=== PATIENT | male | born 1965 | race Hispanic/Latino ===

== ENCOUNTER 2017-10-26 12:33 | Inpatient (IN) | payer MEDICAID, MEDICARE ==
[2017-10-26 12:50] VITALS: BMI 19.8
--- NOTE | 2017-10-26 13:16 | C.PDOC ---
History Of Present Illness 52 yr old male presents to the ER requesting alcohol detox, last drink was last night. Patient reports he usually drink 1 pint a day. Also reports of suicidal ideation, states "want to cut my right foot off". Patient also complaints of left rib area pain for the past few days but doesn't remember any fall. Patient denies fever, chills, chest pain, SOB, nausea, vomiting, abdominal pain, weakness or numbness. Time Seen by Provider: 10/26/17 12:56 Chief Complaint (Nursing): Substance Abuse History Per: Patient History/Exam Limitations: no limitations Onset/Duration Of Symptoms: Days Current Symptoms Are (Timing): Still Present Modifying Factor(s): Alcohol Past Medical History Reviewed: Historical Data, Nursing Documentation, Vital Signs Vital Signs: Last Vital Signs Temp 98.7 F 10/26/17 14:46 Pulse 75 10/26/17 14:46 Resp 18 10/26/17 14:46 BP 121/79 10/26/17 14:46 Pulse Ox 99 10/26/17 14:46 - Medical History PMH: Anxiety, Asthma, Depression, Seizures (from ETOH withdrawal), Sleep Apnea - [facility] Procedures ALCOHOL DETOXIFICATION (03/19/15) DETOXIFICATION SERVICES FOR SUBSTANCE ABUSE TREATMENT (10/03/15) 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 Constitutional: Negative for: Fever, Chills Cardiovascular: Negative for: Chest Pain Respiratory: Negative for: Shortness of Breath Gastrointestinal: Negative for: Nausea, Vomiting, Abdominal Pain Musculoskeletal: Positive for: Other ((+) right rib area pain) Neurological: Negative for: Weakness, Numbness Psych: Positive for: Suicidal ideation, Withdrawal (alcohol) Physical Exam - Physical Exam Appears: Non-toxic, No Acute Distress, Other ((+) tremulous) Skin: Warm, Dry Head: Atraumatic, Normacephalic Eye(s): bilateral: Normal Inspection, PERRL, EOMI Oral Mucosa: Moist Lips: Normal Appearing Neck: Normal, Normal ROM, Supple Cardiovascular: Rhythm Regular, No Murmur Respiratory: Normal Breath Sounds, No Rales, No Rhonchi, No Stridor, No Wheezing Gastrointestinal/Abdominal: Normal Exam, Soft, No Tenderness, No Guarding, No Rebound Extremity: Normal ROM, No Swelling Neurological/Psych: Oriented x3, Normal Speech, Normal Motor, Normal Sensation ED Course And Treatment - Laboratory Results Result Diagrams: 10/26/17 13:29 10/26/17 13:29 ECG: Interpreted By Me, Viewed By Me ECG Rhythm: Sinus Rhythm Interpretation Of ECG: No ST/T wave abnormalities. Rate From EC (BPM) O2 Sat by Pulse Oximetry: 99 (RA) Pulse Ox Interpretation: Normal - Other Rad X-Ray - Ribs & Chest X-Ray: Viewed By Me, Read By Radiologist Interpretation: ADDENDUM: There is a subacute or old fracture at the left 10th rib with callus formation noted. Otherwise no evidence of acute displaced fracture in the left ribs. [ Addendum Report Added by Lorena Alexandra MD at 10/26/2017 17:12:12 ]. PROCEDURE: Radiographs of the Chest and Left Ribs. HISTORY: fall. COMPARISON: Comparison is made with the previous study dated 03/04/2015. TECHNIQUE: Frontal radiograph of the chest and multiple oblique radiographs of the left ribs were obtained. FINDINGS: LEFT RIBS: No fracture or focal lesion visualized. LUNGS: Clear. PLEURA: No pneumothorax or pleural fluid. CARDIOVASCULAR: Normal sized heart. No pulmonary vascular congestion. OTHER FINDINGS: None. IMPRESSION: Unremarkable radiographs of the chest and left ribs. No left rib fracture. Progress Note: Patient is admited for depression and alcohol withdrawals. Medical Decision Making Medical Decision Making: IMPRESSION: Alcohol withdrawals PLAN: * X-Ray - Ribs & Chest * EKG * Troponin * Alcohol Serum * Drug Screen * CBC * CMP * Urinalysis Disposition Discussed With : Jolly Johnson Doctor Will See Patient In The: Hospital Counseled Patient/Family Regarding: Studies Performed, Diagnosis, Need For Followup - Disposition Disposition: HOSPITALIZED Disposition Time: 14:28 Condition: FAIR - Clinical Impression Clinical Impression: Alcohol withdrawal, Depression, Suicide ideation - Scribe Statement The provider has reviewed the documentation as recorded by the Scribe Vandana Isaac Provider Attestation: All medical record entries made by the Scribe were at my direction and personally dictated by me. I have reviewed the chart and agree that the record accurately reflects my personal performance of the history, physical exam, medical decision making, and the department course for this patient. I have also personally directed, reviewed, and agree with the discharge instructions and disposition.
[2017-10-26 13:34] LABS: HEMOGLOBIN 14.4 g/dL (12.0-18.0); MEAN CELL VOLUME 90.1 fL (80.0-94.0); MEAN CORPUSCULAR HEMOGLOBIN 30.3 pg (27.0-31.0); MEAN CORPUSCULAR HGB CONC 33.6 g/dL (33.0-37.0); MEAN PLATELET VOLUME 8.1 fL (7.2-11.7); RBC 4.76 Mil/uL (4.40-5.90); RED CELL DISTRIBUTION WIDTH 13.5 % (11.5-14.5); WHITE BLOOD COUNT 17.6 K/uL (4.8-10.8)
[2017-10-26 13:40] LABS: SQUAMOUS EPITHIAL < 1 /hpf (0-5); URINE BILIRUBIN NEGATIVE (NEGATIVE); URINE BLOOD NEGATIVE (NEGATIVE); URINE CLARITY Clear (Clear); URINE COLOR Yellow (YELLOW); URINE GLUCOSE (UA) 1+ mg/dL (Normal); URINE LEUKOCYTE ESTERASE NEG Leu/uL (Negative); URINE NITRATE NEGATIVE (NEGATIVE); URINE PROTEIN NEGATIVE (NEGATIVE)
[2017-10-26 13:54] LABS: ALB/GLOB RATIO 1.4 (1.0-2.1); ALBUMIN 4.6 g/dL (3.5-5.0); ALT/SGPT 550 U/L (21-72); AST/SGOT 717 U/L (17-59); BLOOD UREA NITROGEN 21 mg/dL (9-20); CALCIUM 8.3 mg/dl (8.6-10.4); GFR AFRICAN-AMERICAN > 60; GFR NON-AFRICAN AMERICAN > 60
[2017-10-26 14:01] LABS: BARBITURATES, UR NEGATIVE (NEGATIVE); BENZODIAZEPINES, UR NEGATIVE (NEGATIVE); OPIATES, UR NEGATIVE (NEGATIVE); PHENCYCLIDINE, UR NEGATIVE (NEGATIVE)
[2017-10-26] MEDS ORDERED: Thiamine 100 mg/ml Inj IV ONE (14:08)
[2017-10-26] MEDS ORDERED: Thiamine 100 mg/ml Inj ONE (15:27)
--- NOTE | 2017-10-26 15:32 | CP.PCM.HP ---
<AlanSiena Oscar - Last Filed: 10/26/17 16:53> History of Present Illness - History of Present Illness History of Present Illness: CC: alcohol detox HPI: Patient is a 52 year old male with past medical history of alcohol abuse and anxiety who presents today because he wants to decrease his drinking. Patient used to drink socially, but about 8 years ago after his mother he started drinking heavily. He has been to about 12 detox programs and 3 inpatient rehabs. Patient has been sober for about 5 months in both 2015 and 2016 after completing programs. Patient is unsure of any triggers that lead to him to go back to drinking. He says he feels a type of safety when he drinks. He used to drink 1 fifth of alcohol per day, but for the past year has decreased to drinking about 1 pint of bourbon per day. He drinks as soon as he wakes up. He says he blacks out most days and goes to the store to buy more alcohol during blackouts. Patient says he goes to AA meetings, but feels they don't help. Patient knows he has been eating less due to the alcohol and says he has lost about 25 lbs in 3 years. He feels very poor self esteem and says it is hard for him to make decisions. He says sometimes he just stops in the middle of the street and cannot make a decision of where to go. Patient says he had one suicide attempt in 2013 where he drank one fifth of alcohol in 1 minute. Patient has not had any episodes of hurting himself and today has no SI or HI. Patient last drank alcohol last night about 1.5 pints. His last drink was around 10pm. Patient also complains of left sided rib pain. About one week ago patient was carrying heavy boxes at work and has been having pain since. Patient denies any recent falls. Patient says he is starting to feel like he is withdrawing from alcohol. He feels anxious and a little shaky. Patient denies sweats, abdominal pain, nausea, vomiting, constipation, or diarrhea. PMD: Dr. Castillo PMHx: alcohol abuse, anxiety, prediabetes Psurg: left wrist ulcer Meds: none Fam hx: Mom: lung CA, Dad: stroke at 57, Grandfather: brain tumor Social hx: alcohol: 1 pint of bourbon per day, denies tobacco, denies drugs. 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 Patient is not in contact with his family. Present on Admission - Present on Admission Any Indicators Present on Admission: No History of DVT/PE: No History of Uncontrolled Diabetes: No Urinary Catheter: No Decubitus Ulcer Present: No Review of Systems - Constitutional Constitutional: Headache - EENT Eyes: absent: Change in Vision Nose/Mouth/Throat: Sore Throat. absent: Nasal Congestion - Cardiovascular Cardiovascular: absent: Chest Pain, Diaphoresis, Dyspnea - Respiratory Additional comments: rib pain on inspiration - Gastrointestinal Gastrointestinal: absent: Abdominal Pain, Constipation, Diarrhea, Nausea, Vomiting - Genitourinary Genitourinary: absent: Difficulty Urinating - Integumentary Integumentary: absent: Rash - Psychiatric Psychiatric: Anxiety, Change in Appetite, Depression. absent: Homicidal Ideation, Suicidal Ideation Past Patient History - Past Medical History & Family History Past Medical History?: Yes - Past Social History Smoking Status: Never Smoked - CARDIAC Hx Hypertension: No - PULMONARY Hx Asthma: Yes Hx Sleep Apnea: Yes - NEUROLOGICAL Hx Seizures: Yes (from ETOH withdrawal) - HEENT Hx HEENT Problems: No Hx Blind: No Hx Cataracts: No Hx Deafness: No Hx Difficulty Chewing: No Hx Epistaxis: No Hx Glaucoma: No Hx Macular Degeneration: No - RENAL Hx Renal Failure: No - ENDOCRINE/METABOLIC Hx Diabetes Mellitus Type 1: No Hx Diabetes Mellitus Type 2: No - HEMATOLOGICAL/ONCOLOGICAL Hx Human Immunodeficiency Virus (HIV): No - INTEGUMENTARY Hx Dermatological Problems: No Hx Basil Cell: No Hx Eczema: No Hx Melanoma: No Hx Psoriasis: No Hx Squamous Cell: No - MUSCULOSKELETAL/RHEUMATOLOGICAL Hx Falls: No - GASTROINTESTINAL Hx Gastroesophageal Reflux: Yes - GENITOURINARY/GYNECOLOGICAL Hx Sexually Transmitted Disorders: No - PSYCHIATRIC Hx Anxiety: Yes Hx Depression: Yes Hx Substance Use: No - SURGICAL HISTORY Hx Cardiac Catheterization: Yes - ANESTHESIA Hx Anesthesia: No Hx Anesthesia Reactions: No Meds Allergies/Adverse Reactions: Allergies Allergy/AdvReac Type Severity Reaction Status Date / Time shellfish derived Allergy URTICARIA Verified 10/26/17 12:49 Sulfa (Sulfonamide Allergy URTICARIA Verified 10/26/17 12:49 Antibiotics) Physical Exam - Constitutional Appears: Non-toxic, No Acute Distress - Head Exam Head Exam: ATRAUMATIC, NORMAL INSPECTION, NORMOCEPHALIC - Eye Exam Eye Exam: EOMI, Normal appearance - ENT Exam ENT Exam: Mucous Membranes Moist - Respiratory Exam Respiratory Exam: Clear to Auscultation Bilateral, NORMAL BREATHING PATTERN. absent: Rales, Rhonchi, Wheezes, Respiratory Distress, Stridor - Cardiovascular Exam Cardiovascular Exam: REGULAR RHYTHM, RRR, +S1, +S2 Additional comments: left sided rib pain to palpation - GI/Abdominal Exam GI & Abdominal Exam: Normal Bowel Sounds, Soft. absent: Distended, Firm, Tenderness - Extremities Exam Extremities exam: Positive for: normal inspection. Negative for: pedal edema, tenderness - Neurological Exam Neurological exam: Alert, Oriented x3 - Psychiatric Exam Psychiatric exam: Anxious, Depressed - Skin Skin Exam: Intact, Normal Color, Warm Results - Vital Signs Recent Vital Signs: Last Vital Signs Temp 98.7 F 10/26/17 14:46 Pulse 75 10/26/17 14:46 Resp 18 10/26/17 14:46 BP 121/79 10/26/17 14:46 Pulse Ox 99 10/26/17 14:46 - Labs Result Diagrams: 10/26/17 13:29 10/26/17 13:29 Labs: Laboratory Results - last 24 hr 10/26/17 10/26/17 10/26/17 13:29 13:29 13:29 WBC 17.6 H D RBC 4.76 Hgb 14.4 Hct 42.9 MCV 90.1 MCH 30.3 MCHC 33.6 RDW 13.5 Plt Count 269 MPV 8.1 Sodium 139 Potassium 3.9 Chloride 101 Carbon Dioxide 27 Anion Gap 15 BUN 21 H Creatinine 0.7 L Est GFR ( Amer) > 60 Est GFR (Non-Af Amer) > 60 Random Glucose 80 Calcium 8.3 L Total Bilirubin 0.8 AST 717 H ALT 550 H D Alkaline Phosphatase 90 Troponin I < 0.0120 Total Protein 8.0 Albumin 4.6 Globulin 3.3 Albumin/Globulin Ratio 1.4 Urine Color Yellow Urine Clarity Clear Urine pH 5.0 Ur Specific [place] 1.027 Urine Protein Negative Urine Glucose (UA) 1+ H Urine Ketones Trace Urine Blood Negative Urine Nitrate Negative Urine Bilirubin Negative Urine Urobilinogen 2.0 Ur Leukocyte Esterase Neg Urine WBC (Auto) 1 Urine RBC (Auto) 1 Ur Squamous Epith Cells < 1 Urine Opiates Screen Urine Methadone Screen Ur Barbiturates Screen Ur Phencyclidine Scrn Ur Amphetamines Screen U Benzodiazepines Scrn U Oth Cocaine Metabols U Cannabinoids Screen Alcohol, Quantitative 46 H 10/26/17 13:29 WBC RBC Hgb Hct MCV MCH MCHC RDW Plt Count MPV Sodium Potassium Chloride Carbon Dioxide Anion Gap BUN Creatinine Est GFR ( Amer) Est GFR (Non-Af Amer) Random Glucose Calcium Total Bilirubin AST ALT Alkaline Phosphatase Troponin I Total Protein Albumin Globulin Albumin/Globulin Ratio Urine Color Urine Clarity Urine pH Ur Specific [place] Urine Protein Urine Glucose (UA) Urine Ketones Urine Blood Urine Nitrate Urine Bilirubin Urine Urobilinogen Ur Leukocyte Esterase Urine WBC (Auto) Urine RBC (Auto) Ur Squamous Epith Cells Urine Opiates Screen Negative Urine Methadone Screen Negative Ur Barbiturates Screen Negative Ur Phencyclidine Scrn Negative Ur Amphetamines Screen Negative U Benzodiazepines Scrn Negative U Oth Cocaine Metabols Negative U Cannabinoids Screen Negative Alcohol, Quantitative Assessment & Plan - Assessment and Plan (Free Text) Assessment: Alcohol Withdrawal Librium 25mg po given in ED Ativan taper Banana bag Ativan 1mg q4h IVP PRN Multivitamins po daily Thiamine 100mg po daily Folic acid 1 mg po daily seizure precautions [facility] psych consult, Dr. Mejía, help appreciated Depression 1:1 observation for possible SI Transaminitis AST: 717 ALT: 550 continue to monitor Left Rib Fracture follow up official report of rib with chest xray as per ED physician- 10th rib fracture Motrin 400mg q6h prn pain Prophylactic Measures Protonix 40mg po daily SCDs, f/u INR before chemical anticoagulation <Jolly Johnson - Last Filed: 10/26/17 19:18> Results - Vital Signs Recent Vital Signs: Last Vital Signs Temp 98.7 F 10/26/17 14:46 Pulse 75 10/26/17 14:46 Resp 18 10/26/17 14:46 BP 121/79 10/26/17 14:46 Pulse Ox 99 10/26/17 17:45 - Labs Result Diagrams: 10/26/17 13:29 10/26/17 13:29 Labs: Laboratory Results - last 24 hr 10/26/17 10/26/17 10/26/17 13:29 13:29 13:29 WBC 17.6 H D RBC 4.76 Hgb 14.4 Hct 42.9 MCV 90.1 MCH 30.3 MCHC 33.6 RDW 13.5 Plt Count 269 MPV 8.1 PT INR Sodium 139 Potassium 3.9 Chloride 101 Carbon Dioxide 27 Anion Gap 15 BUN 21 H Creatinine 0.7 L Est GFR ( Amer) > 60 Est GFR (Non-Af Amer) > 60 Random Glucose 80 Calcium 8.3 L Total Bilirubin 0.8 AST 717 H ALT 550 H D Alkaline Phosphatase 90 Troponin I < 0.0120 Total Protein 8.0 Albumin 4.6 Globulin 3.3 Albumin/Globulin Ratio 1.4 Urine Color Yellow Urine Clarity Clear Urine pH 5.0 Ur Specific [place] 1.027 Urine Protein Negative Urine Glucose (UA) 1+ H Urine Ketones Trace Urine Blood Negative Urine Nitrate Negative Urine Bilirubin Negative Urine Urobilinogen 2.0 Ur Leukocyte Esterase Neg Urine WBC (Auto) 1 Urine RBC (Auto) 1 Ur Squamous Epith Cells < 1 Urine Opiates Screen Urine Methadone Screen Ur Barbiturates Screen Ur Phencyclidine Scrn Ur Amphetamines Screen U Benzodiazepines Scrn U Oth Cocaine Metabols U Cannabinoids Screen Alcohol, Quantitative 46 H 10/26/17 10/26/17 13:29 17:30 WBC RBC Hgb Hct MCV MCH MCHC RDW Plt Count MPV PT 11.3 INR 1.0 Sodium Potassium Chloride Carbon Dioxide Anion Gap BUN Creatinine Est GFR ( Amer) Est GFR (Non-Af Amer) Random Glucose Calcium Total Bilirubin AST ALT Alkaline Phosphatase Troponin I Total Protein Albumin Globulin Albumin/Globulin Ratio Urine Color Urine Clarity Urine pH Ur Specific [place] Urine Protein Urine Glucose (UA) Urine Ketones Urine Blood Urine Nitrate Urine Bilirubin Urine Urobilinogen Ur Leukocyte Esterase Urine WBC (Auto) Urine RBC (Auto) Ur Squamous Epith Cells Urine Opiates Screen Negative Urine Methadone Screen Negative Ur Barbiturates Screen Negative Ur Phencyclidine Scrn Negative Ur Amphetamines Screen Negative U Benzodiazepines Scrn Negative U Oth Cocaine Metabols Negative U Cannabinoids Screen Negative Alcohol, Quantitative Attending/Attestation - Attestation I have personally seen and examined this patient.: Yes I have fully participated in the care of the patient.: Yes I have reviewed all pertinent clinical information: Yes Notes (Text): patient was seen and examined Discussed with the resident I agree with the documentation of the assessment and the plan
--- NOTE | 2017-10-26 17:09 | RAD ---
PROCEDURE: Radiographs of the Chest and Left Ribs. HISTORY: fall COMPARISON: Comparison is made with the previous study dated 03/04/2015. TECHNIQUE: Frontal radiograph of the chest and multiple oblique radiographs of the left ribs were obtained. FINDINGS: LEFT RIBS: No fracture or focal lesion visualized. LUNGS: Clear. PLEURA: No pneumothorax or pleural fluid. CARDIOVASCULAR: Normal sized heart. No pulmonary vascular congestion. OTHER FINDINGS: None. IMPRESSION: Unremarkable radiographs of the chest and left ribs. No left rib fracture.
[2017-10-26 17:40] LABS: PROTHROMBIN TIME 11.3 SECONDS (9.7-12.2)
[2017-10-26] MEDS ORDERED: Folic Acid 1 MG, Thiamine 100 MG, Multivitamin (MVI) 10 ML in Dextrose 5% In Water 1,00... IV SCH (18:00)
[2017-10-27 04:31] LABS: BASO # 0.1 K/uL (0.0-0.2); BASO % 0.8 % (0.0-2.0); EOS # 0.2 K/uL (0.0-0.7); HEMOGLOBIN 12.7 g/dL (12.0-18.0); LYMPH % 21.7 % (20.0-40.0); MEAN CELL VOLUME 89.2 fL (80.0-94.0); MEAN CORPUSCULAR HEMOGLOBIN 31.1 pg (27.0-31.0); MEAN CORPUSCULAR HGB CONC 34.8 g/dL (33.0-37.0); MEAN PLATELET VOLUME 7.9 fL (7.2-11.7); MONO # 0.6 K/uL (0.0-0.8); MONO % 6.4 % (0.0-10.0); NEUT # 6.3 K/uL (1.8-7.0); NEUT % 69.1 % (50.0-75.0); NRBC % 0.1 % (0.0-2.0); RBC 4.1 Mil/uL (4.40-5.90); RED CELL DISTRIBUTION WIDTH 13.7 % (11.5-14.5); WHITE BLOOD COUNT 9.2 K/uL (4.8-10.8)
[2017-10-27 04:55] LABS: ALB/GLOB RATIO 1.4 (1.0-2.1); ALBUMIN 3.6 g/dL (3.5-5.0); ALT/SGPT 315 U/L (21-72); AST/SGOT 218 U/L (17-59); BLOOD UREA NITROGEN 20 mg/dL (9-20); CALCIUM 7.9 mg/dl (8.6-10.4); GFR AFRICAN-AMERICAN > 60; GFR NON-AFRICAN AMERICAN > 60; MAGNESIUM 1.8 mg/dL (1.6-2.3)
[2017-10-27] MEDS: Pantoprazole 40 mg EC Tab PO SCH (11:25)
[2017-10-27] MEDS: Multiple Vitamins Tab PO SCH (11:25)
--- NOTE | 2017-10-27 15:51 | CP.PCM.PN ---
Subjective - Date & Time of Evaluation Date of Evaluation: 10/27/17 Time of Evaluation: 07:00 - Subjective Subjective: PGY1- Medicine Note-Dr. Haider's Service Patient seen and examined at bedside and in no acute distress. Patient says he feels better and less anxious and depressed than yesterday. Patient still feels some shakiness. Patient feels slightly diaphoretic. Patient denies shortness of breath, chest pain, abdominal pain, nausea, vomiting, constipation, or diarrhea. Objective - Vital Signs/Intake and Output Vital Signs (last 24 hours): Temp Pulse Resp BP Pulse Ox 98.5 F 71 18 109/62 97 10/27/17 14:22 10/27/17 14:22 10/27/17 14:22 10/27/17 14:22 10/27/17 14:22 - Medications Medications: Current Medications Folic Acid (Folic Acid) 1 mg PO DAILY [facility] Last Admin: 10/27/17 11:25 Dose: 1 mg Heparin Sodium (Porcine) (Heparin) 5,000 units SC Q8 [facility] Last Admin: 10/27/17 13:29 Dose: 5,000 units Ibuprofen (Motrin Tab) 400 mg PO Q6H PRN PRN Reason: Pain, moderate (4-7) Lorazepam (Ativan) 1 mg IVP Q4H PRN PRN Reason: Anxiety Lorazepam (Ativan) 2 mg PO Q4 [facility] PRN Reason: Taper Stop: 10/31/17 17:14 Last Admin: 10/27/17 12:06 Dose: 2 mg Multivitamins (Hexavitamin) 1 tab PO DAILY [facility] Last Admin: 10/27/17 11:25 Dose: 1 tab Pantoprazole Sodium (Protonix Ec Tab) 40 mg PO DAILY [facility] Last Admin: 10/27/17 11:25 Dose: 40 mg Thiamine HCl (Vitamin B1 Tab) 100 mg PO DAILY [facility] Last Admin: 10/27/17 11:25 Dose: 100 mg - Labs Labs: 10/27/17 04:28 10/27/17 04:28 PT 11.3 SECONDS (9.7-12.2) 10/26/17 17:30 INR 1.0 10/26/17 17:30 - Additional Findings Additional findings: - Constitutional Appears: Non-toxic, No Acute Distress - Head Exam Head Exam: ATRAUMATIC, NORMAL INSPECTION, NORMOCEPHALIC - Eye Exam Eye Exam: EOMI, Normal appearance - ENT Exam ENT Exam: Mucous Membranes Moist - Respiratory Exam Respiratory Exam: Clear to Auscultation Bilateral, NORMAL BREATHING PATTERN. absent: Rales, Rhonchi, Wheezes, Respiratory Distress, Stridor - Cardiovascular Exam Cardiovascular Exam: REGULAR RHYTHM, RRR, +S1, +S2 Additional comments: left sided rib pain to palpation - GI/Abdominal Exam GI & Abdominal Exam: Normal Bowel Sounds, Soft. absent: Distended, Firm, Tenderness - Extremities Exam Extremities exam: Positive for: normal inspection. Negative for: pedal edema, tenderness - Neurological Exam Neurological exam: Alert, Oriented x3 - Psychiatric Exam Psychiatric exam: Normal Affect, Normal Mood - Skin Skin Exam: Intact, Normal Color, Warm Assessment and Plan - Assessment and Plan (Free Text) Assessment: Alcohol Withdrawal Librium 25mg po given in ED Ativan taper Banana bag Ativan 1mg q4h IVP PRN Multivitamins po daily Thiamine 100mg po daily Folic acid 1 mg po daily seizure precautions [place] psych consult, Dr. Mejía, help appreciated Depression 1:1 observation for possible SI Transaminitis decreasing AST: 218, ALT: 315 on 10/27 AST: 717 ALT: 550 on 10/26 continue to monitor Subacute/ Old Left Rib Fracture ribs and cxray(10/26/17): subacute or old fracture at left 10th rib with callus formation as per ED physician- 10th rib fracture Motrin 400mg q6h prn pain Prophylactic Measures Protonix 40mg po daily SCDs, Heparin 5000 u sc q8h
[2017-10-27 17:00] VITALS: RESP 20
--- NOTE | 2017-10-27 23:57 | CARD ---
APPROVED REPORT EKG Measurement Heart [id number] <Conclusion> Normal sinus rhythm Normal ECG
[2017-10-28] MEDS ORDERED: Pneumococcal 23-Valent Vaccine IM ONE (00:31)
[2017-10-28] MEDS ORDERED: Influenza Vaccine 60 mcg/0.5 mL SYR (4YR UP) IM ONE (00:39)
[2017-10-28 08:51] LABS: BASO # 0.1 K/uL (0.0-0.2); BASO % 2.6 % (0.0-2.0); EOS # 0.5 K/uL (0.0-0.7); EOS % 10.5 % (0.0-4.0); LYMPH # 1.5 K/uL (1.0-4.3); MEAN CELL VOLUME 89.8 fL (80.0-94.0); MEAN CORPUSCULAR HEMOGLOBIN 30.5 pg (27.0-31.0); MEAN PLATELET VOLUME 8.6 fL (7.2-11.7); MONO # 0.6 K/uL (0.0-0.8); MONO % 11.6 % (0.0-10.0); NEUT # 2.1 K/uL (1.8-7.0); NEUT % 43.3 % (50.0-75.0); NRBC % 0.1 % (0.0-2.0); RBC 4.26 Mil/uL (4.40-5.90); WHITE BLOOD COUNT 4.8 K/uL (4.8-10.8)
[2017-10-28] MEDS: Pantoprazole 40 mg EC Tab PO SCH (09:12)
[2017-10-28] MEDS: Multiple Vitamins Tab PO SCH (09:12)
[2017-10-28 09:34] LABS: ALB/GLOB RATIO 1.3 (1.0-2.1); ALBUMIN 3.7 g/dL (3.5-5.0); ALT/SGPT 197 U/L (21-72); AST/SGOT 83 U/L (17-59); BLOOD UREA NITROGEN 15 mg/dL (9-20); CALCIUM 8.3 mg/dl (8.6-10.4); GFR AFRICAN-AMERICAN > 60; GFR NON-AFRICAN AMERICAN > 60; MAGNESIUM 1.6 mg/dL (1.6-2.3)
--- NOTE | 2017-10-28 11:28 | PCM.PSYCH ---
Initial Psychiatric Evaluation - Initial Psychiatric Evaluation Type of Admission: Voluntary History of Present Illness and Precipitating Events: Consultation ordered by Medicine team for alcohol use and withdrawal. Patient is a 52 year old male with a past medical history of generalized anxiety , who presented to the hospital for alcohol detox. This patient is single, has no children, employed but not currently working due to weather, and lives at a residence safe house in [place]. Patient drinks "1 pint of bourbon daily" for 12 years. His last use was Friday (1 pint of bourbon), the day before coming to the hospital. Patient reports he has a hard time deciding whether to drink or not, sometimes "stops in the middle of the street and cant decide". Patient states he would really like to stop drinking, but has a hard time making the decision. Patient says he sneaks his alcohol into his residence because there are several people who are recovering addicts. Patient has no family support, but has good support from others. He attends AA meetings, but says it does not help his addiction. Patient denies using drugs or other substances and does not use tobacco. Patient has been to detox/rehab "multiple times, over 10 times", and has had two periods of sobriety in 2014 and 2016 for a duration of 5 months. Patient states he thinks he needs a long-term rehab to remain sober. Patient denies a family history of psychiatric disorders, but admits to a family history of alcohol abuse. Patient currently feels slightly better, less shaky, less sweats, and a slight headache; otherwise, denies nausea , vomiting, diarrhea, auditory and visual hallucinations. Current Medications: Active Medications Generic Name Dose Route Start Last Admin Trade Name Freq PRN Reason Stop Dose Admin Folic Acid 1 mg 10/27/17 10:00 10/28/17 09:12 Folic Acid PO 1 mg DAILY JACQUELINE Administration Heparin Sodium (Porcine) 5,000 units 10/27/17 06:00 10/28/17 06:04 Heparin SC 5,000 units Q8 JACQUELINE Administration Ibuprofen 400 mg 10/26/17 17:07 Motrin Tab PO Q6H PRN Pain, moderate (4-7) Lorazepam 1 mg 10/26/17 17:02 Ativan IVP Q4H PRN Anxiety Lorazepam 2 mg 10/26/17 17:15 10/28/17 09:00 Ativan PO 10/31/17 17:14 2 mg Q4 JACQUELINE Administration Taper Multivitamins 1 tab 10/27/17 10:00 10/28/17 09:12 Hexavitamin PO 1 tab DAILY JACQUELINE Administration Pantoprazole Sodium 40 mg 10/27/17 10:00 10/28/17 09:12 Protonix Ec Tab PO 40 mg DAILY JACQUELINE Administration Thiamine HCl 100 mg 10/27/17 10:00 10/28/17 09:12 Vitamin B1 Tab PO 100 mg DAILY JACQUELINE Administration Past Psychiatric History - Past Psychiatric History Pertinent Medical Hx (Current Medical&Sleep Prob, Allergies): Allergies Allergy/AdvReac Type Severity Reaction Status Date / Time shellfish derived Allergy URTICARIA Verified 10/26/17 12:49 Sulfa (Sulfonamide Allergy URTICARIA Verified 10/26/17 12:49 Antibiotics) No Known Home Med 10/26/17 Review of Systems - Constitutional Constitutional: Sweats - Neurological Neurological: Headaches, Tremor (improving) - Psychiatric Psychiatric: Depression, Suicidal Ideation ("thoughts of hurting self, but no plan or attempts in past"). absent: Anxiety, Auditory Hallucinations, Hallucinations, Homicidal Ideation, Hopelessness, Visual Hallucinations, Tactile Hallucinations Mental Status Examination - Personal Presentation Personal Presentation: Looks stated age - Affect Affect: Depressed - Motor Activity Motor Activity: Calm - Reliability in Providing Information Reliability in Providing Information: Fair - Speech Speech: Organized - Mood Mood: Depressed - Formal Thought Process Formal Thought Process: No Impairment - Cognitive Functions Orientation: Person, Place, Situation, Time Sensorium: Alert Attention/Concentration: Attentive Estimate of Intelligence: Average Judgement: Intact, as evidence by: Insight regarding need for hospitalization Memory: Recent intact, as evidence by: Ability to recall events of the day - Risk Risk: Suicidal, Withdrawal, Diminished functioning DSM 5 DX - DSM 5 DSM 5 Diagnosis: Alcohol Use Disorder Alcohol Withdrawal - Recommended/Plan of Treatment Treatment Recommendations and Plan of Treatment: Continue Ativan 1mg IV Q4 PRN, Ativan 2mg PO Q4, Folic Acid, Multivitamins, Thiamine As needed medications Supportive therapy, [place] for abstinence, CBT for relapse prevention Refer to rehab or IOP, and self-help groups 34 min - Smoking Cessation Smoking Cessation Initiated: No
[2017-10-28 16:16] VITALS: O2SAT 96
--- NOTE | 2017-10-28 17:35 | CP.PCM.PN ---
Subjective - Date & Time of Evaluation Date of Evaluation: 10/28/17 Time of Evaluation: 07:00 - Subjective Subjective: PGY1- Medicine Note-Dr. Haider's Service Patient seen and examined at bedside and in no acute distress. Patient says he feels better and less anxious and depressed than yesterday. Patient still feels some shakiness and anxiety. Patient denies shortness of breath, chest pain, abdominal pain, nausea, vomiting, constipation, or diarrhea. Objective - Vital Signs/Intake and Output Vital Signs (last 24 hours): Temp Pulse Resp BP Pulse Ox 98.2 F 64 20 100/59 L 96 10/28/17 16:00 10/28/17 16:00 10/28/17 16:00 10/28/17 16:00 10/28/17 16:00 Intake and Output: 10/28/17 10/28/17 06:59 18:59 Intake Total 720 Balance 720 - Medications Medications: Current Medications Folic Acid (Folic Acid) 1 mg PO DAILY [facility] Last Admin: 10/28/17 09:12 Dose: 1 mg Heparin Sodium (Porcine) (Heparin) 5,000 units SC Q8 [facility] Last Admin: 10/28/17 14:39 Dose: 5,000 units Ibuprofen (Motrin Tab) 400 mg PO Q6H PRN PRN Reason: Pain, moderate (4-7) Lorazepam (Ativan) 1 mg IVP Q4H PRN PRN Reason: Anxiety Lorazepam (Ativan) 1 mg PO Q4 [facility] PRN Reason: Taper Stop: 10/31/17 17:14 Last Admin: 10/28/17 16:36 Dose: 2 mg Multivitamins (Hexavitamin) 1 tab PO DAILY [facility] Last Admin: 10/28/17 09:12 Dose: 1 tab Pantoprazole Sodium (Protonix Ec Tab) 40 mg PO DAILY [facility] Last Admin: 10/28/17 09:12 Dose: 40 mg Thiamine HCl (Vitamin B1 Tab) 100 mg PO DAILY [facility] Last Admin: 10/28/17 09:12 Dose: 100 mg - Labs Labs: 10/28/17 08:42 10/28/17 08:42 PT 11.3 SECONDS (9.7-12.2) 10/26/17 17:30 INR 1.0 10/26/17 17:30 APTT 36 SECONDS (21-34) H 10/28/17 08:42 - Additional Findings Additional findings: - Additional Findings Additional findings: - Constitutional Appears: Non-toxic, No Acute Distress - Head Exam Head Exam: ATRAUMATIC, NORMAL INSPECTION, NORMOCEPHALIC - Eye Exam Eye Exam: EOMI, Normal appearance - ENT Exam ENT Exam: Mucous Membranes Moist - Respiratory Exam Respiratory Exam: Clear to Auscultation Bilateral, NORMAL BREATHING PATTERN. absent: Rales, Rhonchi, Wheezes, Respiratory Distress, Stridor - Cardiovascular Exam Cardiovascular Exam: REGULAR RHYTHM, RRR, +S1, +S2 Additional comments: left sided rib pain to palpation - GI/Abdominal Exam GI & Abdominal Exam: Normal Bowel Sounds, Soft. absent: Distended, Firm, Tenderness - Extremities Exam Extremities exam: Positive for: normal inspection. Negative for: pedal edema, tenderness - Neurological Exam Neurological exam: Alert, Oriented x3 - Psychiatric Exam Psychiatric exam: Normal Affect, Normal Mood - Skin Skin Exam: Intact, Normal Color, Warm Assessment and Plan - Assessment and Plan (Free Text) Assessment: Alcohol Withdrawal Librium 25mg po given in ED Ativan taper Banana bag Ativan 1mg q4h IVP PRN Multivitamins po daily Thiamine 100mg po daily Folic acid 1 mg po daily seizure precautions [place] psych consult, Dr. Mejía, help appreciated Depression 1:1 observation for possible SI Transaminitis decreasing AST: 218, ALT: 315 on 10/27 AST: 717 ALT: 550 on 10/26 continue to monitor Subacute/ Old Left Rib Fracture ribs and cxray(10/26/17): subacute or old fracture at left 10th rib with callus formation as per ED physician- 10th rib fracture Motrin 400mg q6h prn pain Prophylactic Measures Protonix 40mg po daily SCDs, Heparin 5000 u sc q8h
[2017-10-29 01:40] VITALS: BP 96/59; PULSE 68; TEMP 97.5
[2017-10-29] MEDS: Pantoprazole 40 mg EC Tab PO SCH (11:06)
[2017-10-29] MEDS: Multiple Vitamins Tab PO SCH (11:06)
[2017-10-29 11:30] LABS: BASO # 0.1 K/uL (0.0-0.2); BASO % 1.3 % (0.0-2.0); EOS # 0.4 K/uL (0.0-0.7); EOS % 6.8 % (0.0-4.0); HEMOGLOBIN 13.4 g/dL (12.0-18.0); LYMPH # 1.4 K/uL (1.0-4.3); LYMPH % 25.8 % (20.0-40.0); MEAN CELL VOLUME 90.3 fL (80.0-94.0); MEAN CORPUSCULAR HEMOGLOBIN 30.6 pg (27.0-31.0); MEAN CORPUSCULAR HGB CONC 33.9 g/dL (33.0-37.0); MEAN PLATELET VOLUME 8.7 fL (7.2-11.7); MONO # 0.5 K/uL (0.0-0.8); MONO % 9.1 % (0.0-10.0); NRBC % 0.1 % (0.0-2.0); RBC 4.38 Mil/uL (4.40-5.90); RED CELL DISTRIBUTION WIDTH 13.9 % (11.5-14.5); WHITE BLOOD COUNT 5.3 K/uL (4.8-10.8)
[2017-10-29 11:53] LABS: ALB/GLOB RATIO 1.3 (1.0-2.1); ALBUMIN 3.7 g/dL (3.5-5.0); ALT/SGPT 143 U/L (21-72); AST/SGOT 47 U/L (17-59); BLOOD UREA NITROGEN 17 mg/dL (9-20); CALCIUM 8.6 mg/dl (8.6-10.4); GFR AFRICAN-AMERICAN > 60; GFR NON-AFRICAN AMERICAN > 60; MAGNESIUM 1.4 mg/dL (1.6-2.3)
--- NOTE | 2017-10-29 12:46 | PCM.PYCHPN ---
Psychiatric Progress Note - Psychiatric Progress Note Patient seen today, length of contact: 15 min Medication Change: No Medical Record Reviewed: Yes Mental Status Examination - Cognitive Function Orientation: Person, Place, Situation, Time Memory: Intact Attention: WNL Concentration: WNL - Mood Mood: Depressed - Affect Affect: Depressed - Formal Thought Process Formal Thought Process: No Impairment
--- NOTE | 2017-10-29 15:09 | CP.PCM.DIS ---
Provider - Provider Date of Admission: 10/26/17 14:27 Attending physician: Jolly Johnson MD Primary care physician: Dr. Castillo Consults: Psych: Dr. Yeager Time Spent in preparation of Discharge (in minutes): 45 Diagnosis - Discharge Diagnosis (1) Alcohol withdrawal Status: Resolved (2) Depression Status: Chronic (3) Alcohol dependence Status: Chronic Hospital Course - Lab Results Lab Results: Most Recent Lab Values WBC 5.3 K/uL (4.8-10.8) 10/29/17 11:23 RBC 4.38 Mil/uL (4.40-5.90) L 10/29/17 11:23 Hgb 13.4 g/dL (12.0-18.0) 10/29/17 11:23 Hct 39.5 % (35.0-51.0) 10/29/17 11:23 MCV 90.3 fL (80.0-94.0) 10/29/17 11:23 MCH 30.6 pg (27.0-31.0) 10/29/17 11:23 MCHC 33.9 g/dL (33.0-37.0) 10/29/17 11:23 RDW 13.9 % (11.5-14.5) 10/29/17 11:23 Plt Count 220 K/uL (130-400) 10/29/17 11:23 MPV 8.7 fL (7.2-11.7) 10/29/17 11:23 Neut % (Auto) 57.0 % (50.0-75.0) 10/29/17 11:23 Lymph % (Auto) 25.8 % (20.0-40.0) 10/29/17 11:23 [place] % (Auto) 9.1 % (0.0-10.0) 10/29/17 11:23 Eos % (Auto) 6.8 % (0.0-4.0) H 10/29/17 11:23 Baso % (Auto) 1.3 % (0.0-2.0) 10/29/17 11:23 Neut # 3.0 K/uL (1.8-7.0) 10/29/17 11:23 Lymph # 1.4 K/uL (1.0-4.3) 10/29/17 11:23 [place] # 0.5 K/uL (0.0-0.8) 10/29/17 11:23 Eos # 0.4 K/uL (0.0-0.7) 10/29/17 11:23 Baso # 0.1 K/uL (0.0-0.2) 10/29/17 11:23 PT 11.3 SECONDS (9.7-12.2) 10/26/17 17:30 INR 1.0 10/26/17 17:30 APTT 36 SECONDS (21-34) H 10/28/17 08:42 Sodium 133 mmol/L (132-148) 10/29/17 11:23 Potassium 4.4 mmol/L (3.6-5.2) 10/29/17 11:23 Chloride 97 mmol/L (98-107) L 10/29/17 11:23 Carbon Dioxide 30 mmol/L (22-30) 10/29/17 11:23 Anion Gap 10 (10-20) 10/29/17 11:23 BUN 17 mg/dL (9-20) 10/29/17 11:23 Creatinine 0.7 mg/dL (0.8-1.5) L 10/29/17 11:23 Est GFR ( Amer) > 60 10/29/17 11:23 Est GFR (Non-Af Amer) > 60 10/29/17 11:23 Random Glucose 119 mg/dL (75-110) H 10/29/17 11:23 Calcium 8.6 mg/dl (8.6-10.4) 10/29/17 11:23 Phosphorus 2.2 mg/dL (2.5-4.5) L 10/29/17 11:23 Magnesium 1.4 mg/dL (1.6-2.3) L 10/29/17 11:23 Total Bilirubin 0.5 mg/dL (0.2-1.3) 10/29/17 11:23 AST 47 U/L (17-59) 10/29/17 11:23 ALT 143 U/L (21-72) H D 10/29/17 11:23 Alkaline Phosphatase 68 U/L (38-126) 10/29/17 11:23 Troponin I < 0.0120 ng/mL (0.00-0.120) 10/26/17 13:29 Total Protein 6.7 g/dL (6.3-8.3) 10/29/17 11:23 Albumin 3.7 g/dL (3.5-5.0) 10/29/17 11:23 Globulin 3.0 gm/dL (2.2-3.9) 10/29/17 11:23 Albumin/Globulin Ratio 1.3 (1.0-2.1) 10/29/17 11:23 Urine Color Yellow (YELLOW) 10/26/17 13:29 Urine Clarity Clear (Clear) 10/26/17 13:29 Urine pH 5.0 (5.0-8.0) 10/26/17 13:29 Ur Specific [place] 1.027 (1.003-1.030) 10/26/17 13:29 Urine Protein Negative mg/dL (NEGATIVE) 10/26/17 13:29 Urine Glucose (UA) 1+ mg/dL (Normal) H 10/26/17 13:29 Urine Ketones Trace mg/dL (NEGATIVE) 10/26/17 13:29 Urine Blood Negative (NEGATIVE) 10/26/17 13:29 Urine Nitrate Negative (NEGATIVE) 10/26/17 13:29 Urine Bilirubin Negative (NEGATIVE) 10/26/17 13:29 Urine Urobilinogen 2.0 mg/dL (0.2-1.0) 10/26/17 13:29 Ur Leukocyte Esterase Neg Lai/uL (Negative) 10/26/17 13:29 Urine WBC (Auto) 1 /hpf (0-5) 10/26/17 13:29 Urine RBC (Auto) 1 /hpf (0-3) 10/26/17 13:29 Ur Squamous Epith Cells < 1 /hpf (0-5) 10/26/17 13:29 Urine Opiates Screen Negative (NEGATIVE) 10/26/17 13:29 Urine Methadone Screen Negative (NEGATIVE) 10/26/17 13:29 Ur Barbiturates Screen Negative (NEGATIVE) 10/26/17 13:29 Ur Phencyclidine Scrn Negative (NEGATIVE) 10/26/17 13:29 Ur Amphetamines Screen Negative (NEGATIVE) 10/26/17 13:29 U Benzodiazepines Scrn Negative (NEGATIVE) 10/26/17 13:29 U Oth Cocaine Metabols Negative (NEGATIVE) 10/26/17 13:29 U Cannabinoids Screen Negative (NEGATIVE) 10/26/17 13:29 Alcohol, Quantitative 46 mg/dl (0-10) H 10/26/17 13:29 - Hospital Course Hospital Course: "CC: alcohol detox HPI: Patient is a 52 year old male with past medical history of alcohol abuse and anxiety who presents today because he wants to decrease his drinking. Patient used to drink socially, but about 8 years ago after his mother he started drinking heavily. He has been to about 12 detox programs and 3 inpatient rehabs. Patient has been sober for about 5 months in both 2015 and 2016 after completing programs. Patient is unsure of any triggers that lead to him to go back to drinking. He says he feels a type of safety when he drinks. He used to drink 1 fifth of alcohol per day, but for the past year has decreased to drinking about 1 pint of bourbon per day. He drinks as soon as he wakes up. He says he blacks out most days and goes to the store to buy more alcohol during blackouts. Patient says he goes to AA meetings, but feels they don't help. Patient knows he has been eating less due to the alcohol and says he has lost about 25 lbs in 3 years. He feels very poor self esteem and says it is hard for him to make decisions. He says sometimes he just stops in the middle of the street and cannot make a decision of where to go. Patient says he had one suicide attempt in 2013 where he drank one fifth of alcohol in 1 minute. Patient has not had any episodes of hurting himself and today has no SI or HI. Patient last drank alcohol last night about 1.5 pints. His last drink was around 10pm. Patient also complains of left sided rib pain. About one week ago patient was carrying heavy boxes at work and has been having pain since. Patient denies any recent falls. Patient says he is starting to feel like he is withdrawing from alcohol. He feels anxious and a little shaky. Patient denies sweats, abdominal pain, nausea, vomiting, constipation, or diarrhea." Hospital Course: Patient admitted for alcohol withdrawal. Patient was placed on an Ativan taper with Ativan 1mg q4h IVP PRN. Patient was given one Banana bag and then placed on Thiamine 100mg po daily, Folic acid 1 mg po daily, and multivitamins. Patient was placed on seizure precautions with CIKY protocol. Psychiatry, Dr. Yeager was consulted. Patient has a history of depression and was placed on 1:1 observation for possible SI. Patient evaluated by psychiatry and no longer having any thoughts of hurting himself. Patient stable for discharge. Patient encouraged to seek outpatient help/ treatment for alcohol abuse and depression. Patient admitted with transaminitis. On admission AST: 717 ALT: 550 and upon discharge AST: 47, ALT: 143. Subacute/ Old Left Rib Fracture found on admission. Ribs and cxray(10/26/17) showed subacute or old fracture at left 10th rib with callus formation. Patient to take OTC pain medication. While in the hospital patient was treated for prophylaxis with Protonix 40mg po daily, SCDs, and Heparin 5000 u sc q8h. This is a summary of the patient's hospital course, please see chart for full details. Patient stable for discharge as per Dr. Haider and Dr. Yeager. Discharge Exam - Head Exam Head Exam: ATRAUMATIC, NORMAL INSPECTION, NORMOCEPHALIC - Additional Findings Additional findings: - Constitutional Appears: Non-toxic, No Acute Distress - Head Exam Head Exam: ATRAUMATIC, NORMAL INSPECTION, NORMOCEPHALIC - Eye Exam Eye Exam: EOMI, Normal appearance - ENT Exam ENT Exam: Mucous Membranes Moist - Respiratory Exam Respiratory Exam: Clear to Auscultation Bilateral, NORMAL BREATHING PATTERN. absent: Rales, Rhonchi, Wheezes, Respiratory Distress, Stridor - Cardiovascular Exam Cardiovascular Exam: REGULAR RHYTHM, RRR, +S1, +S2 Additional comments: left sided rib pain to palpation - GI/Abdominal Exam GI & Abdominal Exam: Normal Bowel Sounds, Soft. absent: Distended, Firm, Tenderness - Extremities Exam Extremities exam: Positive for: normal inspection. Negative for: pedal edema, tenderness - Neurological Exam Neurological exam: Alert, Oriented x3 - Psychiatric Exam Psychiatric exam: Normal Affect, Normal Mood - Skin Skin Exam: Intact, Normal Color, Warm Discharge Plan - Follow Up Plan Condition: FAIR Disposition: HOME/ ROUTINE Instructions: Abuse of Alcohol (DC), Suicide Prevention for Adults (DC) Additional Instructions: Patient stable for discharge as per Dr. Haider. Patient should follow up with PMD, Dr. Castillo within one week. Patient should return to ED if symptoms return. Patient explained instructions who understands and agrees.
== END 2017-10-29 15:42 | disposition home or self-care (01) | DRG 897 ==
LOC: C.ER 12:33 → C.9E 14:27 → C.3T 10-27 15:13
PROVIDERS: ADMIT Internal Medicine; ATTEND Internal Medicine
PROC: HZ2ZZZZ Detoxification Services for Substance Abuse Treatment (ICD-10-PCS; principal; 2017-10-26)
DX: F10.220 Alcohol dependence with intoxication, uncomplicated (principal); F10.230 Alcohol dependence with withdrawal, uncomplicated; Z68.1 Body mass index [BMI] 19.9 or less, adult; F32.9 Major depressive disorder, single episode, unspecified; F41.1 Generalized anxiety disorder; G47.30 Sleep apnea, unspecified; J45.909 Unspecified asthma, uncomplicated; Y90.2 Blood alcohol level of 40-59 mg/100 ml

== ENCOUNTER 2018-02-01 17:52 | Emergency (ER) | payer MEDICARE ==
[2018-02-01 20:52] VITALS: BP 114/69; PULSE 74
--- NOTE | 2018-02-01 21:22 | C.PDOC ---
History Of Present Illness Pt is here requesting detox. Time Seen by Provider: 02/01/18 19:45 Chief Complaint (Nursing): Substance Abuse History Per: Patient Onset/Duration Of Symptoms: Days Current Symptoms Are (Timing): Still Present Suicide/Self Injury Attempted (Context): None Modifying Factor(s): Alcohol Severity: Moderate Associated Symptoms: denies: Suicidal Thoughts, Suicidal Plan Additional History Per: Prior Records Past Medical History Reviewed: Historical Data, Nursing Documentation, Vital Signs Vital Signs: Last Vital Signs Temp 97.6 F 02/01/18 17:58 Pulse 74 02/01/18 20:51 Resp 20 02/01/18 20:51 BP 114/69 02/01/18 20:51 Pulse Ox 99 02/01/18 20:51 - Medical History PMH: Anxiety, Asthma, Depression Family History: States: Unknown Family Hx - Social History Hx Alcohol Use: Yes Hx Substance Use: No - Immunization History Hx Tetanus Toxoid Vaccination: No Hx Influenza Vaccination: No Review Of Systems Except As Marked, All Systems Reviewed And Found Negative. Constitutional: Negative for: Fever Cardiovascular: Negative for: Chest Pain Respiratory: Negative for: Shortness of Breath Gastrointestinal: Negative for: Vomiting, Abdominal Pain Genitourinary: Negative for: Dysuria, Incontinence Musculoskeletal: Positive for: Back Pain (low, after falling today). Negative for: Neck Pain Neurological: Negative for: Weakness, Numbness, Seizures, Altered Mental Status , Headache Psych: Negative for: Psychosis Physical Exam - Physical Exam Appears: Non-toxic, No Acute Distress Skin: Normal Color, Warm, Dry Head: Atraumatic, Normacephalic Eye(s): bilateral: PERRL, EOMI Neck: Normal ROM, No Midline Cervical Tenderness, No Step Off Deformity, Supple Chest: Symmetrical, No Deformity Cardiovascular: Rhythm Regular Respiratory: Normal Breath Sounds, No Accessory Muscle Use Gastrointestinal/Abdominal: Soft, No Tenderness Back: No Vertebral Tenderness, Paraspinal Tenderness (lumbar) Extremity: Normal ROM, No Deformity Neurological/Psych: Oriented x3, Normal Motor, Normal Sensation ED Course And Treatment O2 Sat by Pulse Oximetry: 99 Pulse Ox Interpretation: Normal Progress Note: There are no detox beds available today. Pt was given infomation about this and other available detox programs. Reassessment Condition: Improved Disposition Counseled Patient/Family Regarding: Diagnosis, Need For Followup - Disposition Referrals: Geraldo Castillo Jr., MD [Medical Doctor] - Disposition: HOME/ ROUTINE Disposition Time: 21:22 Condition: STABLE Additional Instructions: Follow up with your doctor and with a detox program. Return to the ER if you develop worsening of symptoms or if you have any other concerns. Instructions: Alcohol Abuse and Alcoholism (DC) Forms: [facility] (Persian) - Clinical Impression Clinical Impression: Alcohol abuse
[2018-02-01 21:52] VITALS: RESP 18; TEMP 98.1; O2SAT 98
== END 2018-02-01 21:47 | disposition home or self-care (01) ==
LOC: MERGE 17:52 → C.ER 17:52
DX: F10.10 Alcohol abuse, uncomplicated (principal)
CPT/HCPCS: 96372; 99285; J1885

== ENCOUNTER 2018-02-06 22:42 | Emergency (ER) | payer MEDICARE ==
[2018-02-06 22:44] VITALS: BMI 19.8
[2018-02-06 23:35] LABS: URINE BILIRUBIN NEGATIVE (NEGATIVE); URINE BLOOD NEGATIVE (NEGATIVE); URINE CLARITY Clear (Clear); URINE COLOR Straw (YELLOW); URINE GLUCOSE (UA) NORMAL (Normal); URINE LEUKOCYTE ESTERASE NEG Leu/uL (Negative); URINE PROTEIN NEGATIVE (NEGATIVE); URINE UROBILINOGEN NORMAL mg/dL (0.2-1.0)
[2018-02-06 23:42] LABS: BASO # 0.1 K/uL (0.0-0.2); BASO % 1.5 % (0.0-2.0); EOS # 0.1 K/uL (0.0-0.7); EOS % 2.4 % (0.0-4.0); HEMOGLOBIN 13.7 g/dL (12.0-18.0); LYMPH # 1.7 K/uL (1.0-4.3); MEAN CELL VOLUME 91.1 fL (80.0-94.0); MEAN CORPUSCULAR HEMOGLOBIN 30.9 pg (27.0-31.0); MEAN CORPUSCULAR HGB CONC 33.9 g/dL (33.0-37.0); MEAN PLATELET VOLUME 7.2 fL (7.2-11.7); MONO # 0.5 K/uL (0.0-0.8); MONO % 9.3 % (0.0-10.0); NEUT # 2.8 K/uL (1.8-7.0); NEUT % 53.8 % (50.0-75.0); NRBC % 0.1 % (0.0-2.0); RBC 4.43 Mil/uL (4.40-5.90); RED CELL DISTRIBUTION WIDTH 14.4 % (11.5-14.5); WHITE BLOOD COUNT 5.1 K/uL (4.8-10.8)
[2018-02-06 23:49] LABS: BARBITURATES, UR NEGATIVE (NEGATIVE); OPIATES, UR NEGATIVE (NEGATIVE); PHENCYCLIDINE, UR NEGATIVE (NEGATIVE)
[2018-02-06 23:51] LABS: BENZODIAZEPINES, UR POSITIVE (NEGATIVE)
[2018-02-06 23:55] LABS: ALB/GLOB RATIO 1.2 (1.0-2.1); ALT/SGPT 26 U/L (21-72); AST/SGOT 27 U/L (17-59); BLOOD UREA NITROGEN 12 mg/dL (9-20); CALCIUM 8.5 mg/dl (8.6-10.4); GFR AFRICAN-AMERICAN > 60; GFR NON-AFRICAN AMERICAN > 60
--- NOTE | 2018-02-07 00:15 | C.PDOC ---
History Of Present Illness <Curt Chow - Last Filed: 02/07/18 00:21> <Tutu Oden - Last Filed: 02/07/18 05:30> Patient brought to ED by ambulance for loud and disruptive intoxication at home. Patient has many years of alcohol abuse. Denies SI, HI or any other physical complaints. (Curt Chow) History Per: Patient History/Exam Limitations: no limitations Onset/Duration Of Symptoms: Hrs Current Symptoms Are (Timing): Still Present Suicide/Self Injury Attempted (Context): None Modifying Factor(s): Alcohol Associated Symptoms: denies: Suicidal Thoughts, Suicidal Plan Involuntary Hold By: None Recent travel outside of the [place]: No <Curt Chow - Last Filed: 02/07/18 00:21> <Tutu Oden - Last Filed: 02/07/18 05:30> Time Seen by Provider: 02/06/18 23:12 Chief Complaint (Nursing): Substance Abuse Past Medical History Reviewed: Historical Data, Nursing Documentation, Vital Signs - Medical History PMH: Anxiety, Asthma, Depression, Seizures (from ETOH withdrawal), Sleep Apnea Family History: States: Unknown Family Hx - Social History Hx Tobacco Use: No Hx Alcohol Use: Yes Hx Substance Use: No - Immunization History Hx Tetanus Toxoid Vaccination: No Hx Influenza Vaccination: No Hx Pneumococcal Vaccination: No <Curt Chow - Last Filed: 02/07/18 00:21> Vital Signs: Last Vital Signs Temp 97.5 F L 02/06/18 22:54 Pulse 84 02/06/18 22:54 Resp 14 02/06/18 22:54 BP 107/59 L 02/06/18 22:54 Pulse Ox 99 02/07/18 00:23 - [facility] Procedures ALCOHOL DETOXIFICATION (03/19/15) DETOXIFICATION SERVICES FOR SUBSTANCE ABUSE TREATMENT (10/26/17) INDIV TIMBER HARVESTER OPERATOR FOR SUBSTANCE ABUSE, MOTIVATIONAL ENHANCE (10/03/15) OTHER GROUP THERAPY (07/27/13) Review Of Systems Constitutional: Positive for: Other (intoxication). Negative for: Fever, Chills Gastrointestinal: Negative for: Nausea, Vomiting, Diarrhea Skin: Negative for: Rash Neurological: Negative for: Weakness, Numbness Psych: Negative for: Suicidal ideation <Curt Chow - Last Filed: 02/07/18 00:21> Physical Exam - Physical Exam Appears: Non-toxic, No Acute Distress, Other (ETOH on breath' Does not follow instructions; Intoxicated; appears chronically and mentally ill; nonsensical; bizarre movements) Skin: Normal Color, Warm, Dry Head: Atraumatic, Normacephalic Eye(s): bilateral: Normal Inspection Oral Mucosa: Moist Neck: Supple Chest: Symmetrical, No Tenderness Cardiovascular: Rhythm Regular Respiratory: No Decreased Breath Sounds, No Rales, No Rhonchi, No Wheezing Gastrointestinal/Abdominal: Soft, No Tenderness, No Distention Extremity: Normal ROM, No Pedal Edema, No Deformity Extremity: Bilateral: Normal Color And Temperature, Normal ROM Neurological/Psych: Oriented x3 Gait: Steady <Curt Chow - Last Filed: 02/07/18 00:21> ED Course And Treatment - Laboratory Results Result Diagrams: 02/06/18 23:38 02/06/18 23:38 Lab Interpretation: Abnormal (etoh 344 H, tox + benzo's) O2 Sat by Pulse Oximetry: 99 (RA) Pulse Ox Interpretation: Normal Reevaluation Time: 01:00 Reassessment Condition: Improved (more calm cooperative, but still intoxicated.) <Curt Chow - Last Filed: 02/07/18 00:21> - Laboratory Results Result Diagrams: 02/06/18 23:38 02/06/18 23:38 Pulse Ox Interpretation: Normal <Tutu Oden - Last Filed: 02/07/18 05:30> Medical Decision Making <Curt Chow - Last Filed: 02/07/18 00:21> <Tutu Oden - Last Filed: 02/07/18 05:30> Medical Decision Making: Ordered blood work and urinalysis persistent alcohol/benzo abuse, biba from home. (Curt Chow) Disposition - Disposition Disposition Time: 01:00 <Curt Chow - Last Filed: 02/07/18 00:21> Counseled Patient/Family Regarding: Studies Performed, Diagnosis <Tutu Oden - Last Filed: 02/07/18 05:30> - Disposition Disposition: HOME/ ROUTINE Condition: FAIR Instructions: Alcohol Abuse and Alcoholism (DC) Forms: [facility] (Telugu) - Clinical Impression Clinical Impression: Alcohol abuse, Alcohol intoxication - Scribe Statement The provider has reviewed the documentation as recorded by the Scribe <Curt Chow - Last Filed: 02/07/18 00:21> <Tutu Oden - Last Filed: 02/07/18 05:30> - Scribe Statement Christiana Knight All medical record entries made by the Scribe were at my direction and personally dictated by me. I have reviewed the chart and agree that the record accurately reflects my personal performance of the history, physical exam, medical decision making, and the department course for this patient. I have also personally directed, reviewed, and agree with the discharge instructions and disposition. (Curt Chow) Physician Patient Turnover Patient Signed Over To: Tutu Oden Handoff Comments: dispo in AM when sober <Curt Chow - Last Filed: 02/07/18 00:21>
[2018-02-07 05:50] VITALS: BP 119/62; PULSE 76; RESP 20; TEMP 98.2; O2SAT 97
== END 2018-02-07 06:27 | disposition home or self-care (01) ==
LOC: C.ER 22:42
DX: F10.129 Alcohol abuse with intoxication, unspecified (principal); Y90.8 Blood alcohol level of 240 mg/100 ml or more
CPT/HCPCS: 80053; 81001; 85025; 99285; G0480